=== PATIENT | male | born 1975 | race African-American/Black ===

== ENCOUNTER 2016-08-23 22:32 | Emergency (ER) | payer SELFPAY ==
[~2016-08-23] VITALS: Ht 182.9 cm; Wt 117.9 kg
--- NOTE | 2016-08-23 23:20 | NUR ---
PT PRESENTED TO THE ER WITH A C/O LT SIDED CP THAT RADIATES TO NECK WITH TINGLING DOWN THE LT ARM. PT IS AA7O X4. RESP EVEN AND UNLABORED. PT IS ON THE MONITOR AND CONTINUOUS PULSE OX. VSS.
[2016-08-23 23:46] LABS: BASOPHILS % (AUTO) 0.8 % (0.0-2.0); CALCIUM, SERUM 8.4 mg/dL (8.5-10.1); CARBON DIOXIDE 27 mmol/L (21-32); CHLORIDE 109 mmol/L (98-107); CREATININE 0.8 mg/dL (0.6-1.3); EOSINOPHILS % (AUTO) 1.8 % (0.0-6.0); GLUCOSE 115 mg/dL (74-106); HEMATOCRIT 39 % (39-51); HEMOGLOBIN 12.4 g/dL (13.5-17.5); LYMPHOCYTES % (AUTO) 30.6 % (20.0-44.0); MEAN CORPUSCULAR HEMOGLOBIN 28 PG (26.0-33.0); MEAN CORPUSCULAR HGB CONC 32 g/dl (31.0-36.0); MEAN CORPUSCULAR VOLUME 86 fL (80-96); MONOCYTES % (AUTO) 6.8 % (2.0-12.0); PLATELET COUNT (AUTO) 208 /CMM (150-450); POTASSIUM 3.6 mmol/L (3.5-5.1); RDW COEFFICIENT OF VARIATION 15.6 (11.5-15.0); SODIUM SERUM 143 mmol/L (136-145); UREA NITROGEN, BLOOD 12 mg/dL (7-18); WHITE BLOOD COUNT (AUTO) 8.1 K/uL (4.3-11.0)
[2016-08-23] MEDS ORDERED: NITROGLYCERIN 0.4 MG/TAB BOTTLE ONE (23:48)
--- NOTE | 2016-08-23 23:54 | NUR ---
PT REC'D MEDICATION ORDERED.
[2016-08-23 23:56] LABS: TROPONIN I < 0.017 ng/mL (0.00-0.056)
[2016-08-24] MEDS ORDERED: KETOROLAC TROMETHAMINE INJ 30 MG/ML VIAL ONE
[2016-08-24] MEDS ORDERED: NITROGLYCERIN 0.4 MG/TAB BOTTLE SL ONE
[2016-08-24 00:05] LABS: D-DIMER 0.23 mg/L(FEU (0.17-0.50); INR 0.91 (0.87-1.13); PROTHROMBIN TIME 9.7 SECS (9.5-12.7)
--- NOTE | 2016-08-24 00:08 | NUR ---
PT IS C/O HEADACHE. PT REC'D MEDICATION ORDERED.
--- NOTE | 2016-08-24 00:16 | NUR ---
US TECH IS AT THE BEDSIDE.
[2016-08-24] MEDS ORDERED: KETOROLAC TROMETHAMINE INJ 30 MG/ML VIAL IV ONE (00:30)
--- NOTE | 2016-08-24 00:48 | NUR ---
IV removed. Catheter intact and site benign. Pressure and 4x4 applied to site. No bleeding noted.Patient discharged to home in stable condition. Written and verbal after care instructions given. Patient verbalizes understanding of instruction AND RX. PT AMBULATED TO THE [facility] WITH A STEADY GAIT. PT IS WAITING FOR THE BUSES TO RUN TO [facility]. VSS
[2016-08-24 00:54] VITALS: BP 135/95
== END 2016-08-24 00:55 | disposition home or self-care (01) ==
LOC: ER 22:38
DX: R07.9 Chest pain, unspecified (principal); M79.1 Myalgia; Z87.891 Personal history of nicotine dependence; F17.200 Nicotine dependence, unspecified, uncomplicated; Z91.013 Allergy to seafood
CPT/HCPCS: 36415; 71010; 80048; 84484; 85025; 85378; 85730; 93005; 93971; 96374; 99285; A4606; J1885; Z7610

== ENCOUNTER 2018-11-04 10:46 | Emergency (ER) | payer MEDICAID ==
[~2018-11-04] VITALS: Ht 182.9 cm; Wt 115.2 kg
--- NOTE | 2018-11-04 11:00 | NUR ---
patient came in to the ER c/o "Chest pains x2days right mid abdomen/chest (epigastric) to back +nausea. Tingling/numb left arm". connected to the monitor and pulse ox. Kept comfortable, will continue to monitor accordingly.
[2018-11-04 11:26] LABS: BASOPHILS # (AUTO) 0.1 /CMM (0.0-0.2); BASOPHILS % (AUTO) 1.5 % (0.0-2.0); EOSINOPHILS % (AUTO) 3.4 % (0.0-6.0); HEMATOCRIT 47 % (39-51); HEMOGLOBIN 15.3 g/dL (13.5-17.5); LYMPHOCYTES # (AUTO) 1.6 /CMM (0.8-4.8); LYMPHOCYTES % (AUTO) 28.3 % (20.0-44.0); MEAN CORPUSCULAR HGB CONC 33 g/dl (31.0-36.0); MEAN CORPUSCULAR VOLUME 84 fL (80-96); MONOCYTES # (AUTO) 0.5 /CMM (0.1-1.30); MONOCYTES % (AUTO) 9.1 % (2.0-12.0); NEUTROPHILS # (AUTO) 3.3 /CMM (1.8-8.9); NEUTROPHILS % (AUTO) 57.7 % (43.0-81.0); PLATELET COUNT (AUTO) 203 /CMM (150-450); RED BLOOD CELL COUNT(AUTO) 5.56 MIL/uL (4.5-6.0); WHITE BLOOD COUNT (AUTO) 5.7 K/uL (4.3-11.0)
[2018-11-04] MEDS ORDERED: ONDANSETRON HCL/PF 4 MG/2 ML VIAL IVP ONE (11:30)
[2018-11-04] MEDS ORDERED: NITROGLYCERIN PACKET 1 GM PACKET TD ONE (11:30)
[2018-11-04] MEDS ORDERED: MORPHINE SULFATE INJ 2 MG/ML DISP.SYRIN IV ONE (11:30)
[2018-11-04] MEDS ORDERED: MORPHINE SULFATE INJ 4 MG/ML DISP.SYRIN ONE (11:34)
[2018-11-04] MEDS ORDERED: ONDANSETRON HCL/PF 4 MG/2 ML VIAL ONE (11:34)
[2018-11-04 11:39] LABS: CALCIUM, SERUM 9.3 mg/dL (8.5-10.1); CARBON DIOXIDE 29 mmol/L (21-32); CHLORIDE 98 mmol/L (98-107); CREATININE 1.1 mg/dL (0.6-1.3); POTASSIUM 4.2 mmol/L (3.5-5.1); SODIUM SERUM 135 mmol/L (136-145); UREA NITROGEN, BLOOD 13 mg/dL (7-18)
[2018-11-04 11:40] LABS: GLUCOSE 428 mg/dL (74-106)
[2018-11-04] MEDS ORDERED: IV NS 0.9% 1,000 ML BAG IV ONE (12:00)
[2018-11-04 12:05] VITALS: BP 129/84
--- NOTE | 2018-11-04 12:22 | NUR ---
[facility] PAGED
--- NOTE | 2018-11-04 12:41 | NUR ---
room [id number]
[2018-11-04] MEDS ORDERED: ASPIRIN 81 MG TAB.CHEW PO ONE (13:00)
[2018-11-04] MEDS ORDERED: ONDANSETRON HCL/PF 4 MG/2 ML VIAL IVP PRN (13:00)
[2018-11-04] MEDS ORDERED: MAGNESIUM HYDROXIDE 30 ML UDC PO PRN (13:00)
[2018-11-04] MEDS ORDERED: MORPHINE SULFATE INJ 2 MG/ML DISP.SYRIN IV PRN (13:00)
[2018-11-04] MEDS ORDERED: ACETAMINOPHEN 325 MG TABLET PO PRN (13:00)
[2018-11-04] MEDS ORDERED: MAG HYDROX/AL HYDROX/SIMETH 30 ML UDC PO PRN (13:00)
[2018-11-04] MEDS ORDERED: INSULIN REGULAR, HUMAN 100 UNIT/ML 3 ML VIAL SQ PRN (13:00)
[2018-11-04] MEDS ORDERED: ZOLPIDEM TARTRATE 5 MG TABLET PO PRN (13:00)
[2018-11-04] MEDS ORDERED: DEXTROSE 50%-WATER 50 ML DISP.SYRIN IV PRN (13:00)
[2018-11-04] MEDS ORDERED: NITROGLYCERIN 0.4 MG/TAB BOTTLE SL PRN (14:00)
--- NOTE | 2018-11-04 14:02 | NUR ---
Patient does not wish to proceed with medical care recommended by ( barbi). Patient given information related to possible complications, up to and including , which could occur as a result of leaving the hospital at this time. Patient verbalizes understanding of risks involved due to leaving against medical advice. Patient has signed AMA form.
[2018-11-04] MEDS ORDERED: CARVEDILOL 3.125 MG TABLET PO SCH (17:00)
[2018-11-04] MEDS ORDERED: BLOOD SUGAR DIAGNOSTIC 1 EACH STRIP IN SCH (17:30)
[2018-11-04] MEDS ORDERED: ATORVASTATIN 10 MG TABLET PO SCH (22:00)
[2018-11-05] MEDS ORDERED: ASPIRIN 81 MG TAB.CHEW PO SCH (09:00)
== END 2018-11-04 14:02 | disposition left against medical advice (07) ==
LOC: ER 10:48 → TELE 12:48 → UNDOADMIN 12:48
DX: R07.89 Other chest pain (principal); R73.9 Hyperglycemia, unspecified; F17.200 Nicotine dependence, unspecified, uncomplicated; Z91.013 Allergy to seafood
CPT/HCPCS: 36415; 71045; 80048; 83880; 84484; 85025; 85610; 85730; 87081; 93005; 96374; 96375; 99284; J1815; J2270; J2405; J7030

== ENCOUNTER 2018-11-04 20:23 | Emergency (ER) | payer MEDICAID ==
[~2018-11-04] VITALS: Ht 182.9 cm; Wt 115.2 kg
[2018-11-04 20:54] LABS: BASOPHILS % (AUTO) 0.9 % (0.0-2.0); EOSINOPHILS % (AUTO) 3.5 % (0.0-6.0); HEMATOCRIT 44 % (39-51); HEMOGLOBIN 14.3 g/dL (13.5-17.5); LYMPHOCYTES # (AUTO) 1.3 /CMM (0.8-4.8); LYMPHOCYTES % (AUTO) 24.5 % (20.0-44.0); MEAN CORPUSCULAR HGB CONC 32 g/dl (31.0-36.0); MEAN CORPUSCULAR VOLUME 85 fL (80-96); MONOCYTES # (AUTO) 0.4 /CMM (0.1-1.30); MONOCYTES % (AUTO) 7.3 % (2.0-12.0); NEUTROPHILS # (AUTO) 3.3 /CMM (1.8-8.9); NEUTROPHILS % (AUTO) 63.8 % (43.0-81.0); PLATELET COUNT (AUTO) 190 /CMM (150-450); RED BLOOD CELL COUNT(AUTO) 5.24 MIL/uL (4.5-6.0); WHITE BLOOD COUNT (AUTO) 5.1 K/uL (4.3-11.0)
[2018-11-04 21:00] VITALS: BP 113/73
--- NOTE | 2018-11-04 21:01 | NUR ---
BIBF. C/O "HAVING CHEST PAIN X1 DAY. WAS SEEN AND D/C FROM [facility] TODAY" SAME PAIN BEFORE. VSS AT THIS TIME. AOX4. -SOB
[2018-11-04 21:07] LABS: CALCIUM, SERUM 8.8 mg/dL (8.5-10.1); CARBON DIOXIDE 28 mmol/L (21-32); CHLORIDE 97 mmol/L (98-107); CREATININE 1.1 mg/dL (0.6-1.3); POTASSIUM 4.6 mmol/L (3.5-5.1); SODIUM SERUM 131 mmol/L (136-145); UREA NITROGEN, BLOOD 14 mg/dL (7-18)
[2018-11-04 21:11] LABS: GLUCOSE 524 mg/dL (74-106)
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
--- NOTE | 2018-11-04 21:32 | NUR ---
IV REMOVED. PATIENT LEFT WITH SECURITY
== END 2018-11-04 21:33 | disposition left against medical advice (07) ==
LOC: ER 20:29
DX: R07.89 Other chest pain (principal); R73.9 Hyperglycemia, unspecified; F17.200 Nicotine dependence, unspecified, uncomplicated; Z91.013 Allergy to seafood
CPT/HCPCS: 36415; 80048-TC; 84484-TC; 85025-TC

== ENCOUNTER 2020-01-01 11:40 | Inpatient (IN) | payer MEDICAID ==
[~2020-01-01] VITALS: Ht 182.9 cm; Wt 108.9 kg
--- NOTE | 2020-01-01 11:48 | NUR ---
PT came to ER with c/o left sided chest pain of 9/10 radiating to jaw and neck. no diaphoresis. no SOB. pt calm and no facial grimacing or moaning. pt also noted with non productive cough. awaiting for MD gil
[2020-01-01] MEDS ORDERED: NITROGLYCERIN PACKET 1 GM PACKET ONE (11:58)
[2020-01-01] MEDS ORDERED: ASPIRIN 325 MG TABLET ONE (11:59)
[2020-01-01] MEDS ORDERED: NITROGLYCERIN PACKET 1 GM PACKET TD ONE (12:00)
[2020-01-01] MEDS ORDERED: ASPIRIN 325 MG TABLET PO ONE (12:00)
--- NOTE | 2020-01-01 12:03 | NUR ---
IV LINE ESTABLISHED, BLOOD DRAWN AND SENT TO LAB. COVID SWAB SENT.
[2020-01-01 12:18] LABS: CALCIUM, SERUM 9.4 mg/dL (8.5-10.1); CARBON DIOXIDE 28 mmol/L (21-32); CHLORIDE 94 mmol/L (98-107); POTASSIUM 4.6 mmol/L (3.5-5.1); SODIUM SERUM 130 mmol/L (136-145); UREA NITROGEN, BLOOD 15 mg/dL (7-18)
[2020-01-01 12:23] LABS: BASOPHILS # (AUTO) 0.1 /CMM (0.0-0.2); HEMATOCRIT 51 % (39-51); HEMOGLOBIN 16.4 g/dL (13.5-17.5); LYMPHOCYTES # (AUTO) 1.6 /CMM (0.8-4.8); LYMPHOCYTES % (AUTO) 29.5 % (20.0-44.0); MEAN CORPUSCULAR HGB CONC 32 g/dl (31.0-36.0); MEAN CORPUSCULAR VOLUME 83 fL (80-96); MONOCYTES # (AUTO) 0.4 /CMM (0.1-1.30); MONOCYTES % (AUTO) 6.5 % (2.0-12.0); NEUTROPHILS # (AUTO) 3.3 /CMM (1.8-8.9); PLATELET COUNT (AUTO) 203 /CMM (150-450); RED BLOOD CELL COUNT(AUTO) 6.07 MIL/uL (4.5-6.0); WHITE BLOOD COUNT (AUTO) 5.5 K/uL (4.3-11.0)
[2020-01-01 12:26] LABS: GLUCOSE 473 mg/dL (74-106)
[2020-01-01] MEDS ORDERED: IV NS 0.9% 1,000 ML BAG IV ONE (12:30)
[2020-01-01] MEDS ORDERED: METOPROLOL TARTRATE 25 MG TABLET PO ONE (12:30)
--- NOTE | 2020-01-01 12:36 | NUR ---
v/s checked. sbp <110. md aware with order to hold metorpolol. noted. pt still c/o chest pain nad headache. MD aware, awaiting for new orders
[2020-01-01] MEDS ORDERED: MORPHINE SULFATE INJ 4 MG/ML DISP.SYRIN ONE (12:38)
[2020-01-01] MEDS ORDERED: ONDANSETRON HCL/PF 4 MG/2 ML VIAL ONE (12:38)
[2020-01-01] MEDS ORDERED: ONDANSETRON HCL/PF 4 MG/2 ML VIAL IVP ONE (13:00)
[2020-01-01] MEDS ORDERED: MORPHINE SULFATE INJ 2 MG/ML DISP.SYRIN IV ONE (13:00)
--- NOTE | 2020-01-01 13:35 | NUR ---
CALLED CARDIOLOGY HAT SPRAYER. DR. ORTEGA HAT SPRAYER AND ANSWERED. SPEAKING WITH DR. PATTEN.
--- NOTE | 2020-01-01 13:41 | NUR ---
PAGED [facility].
[2020-01-01] MEDS ORDERED: METOPROLOL TARTRATE INJ 5 MG/5 ML AMPUL ONE (14:16)
[2020-01-01] MEDS ORDERED: IOHEXOL-350 100 ML VIAL IV ONE (14:16)
[2020-01-01] MEDS ORDERED: IV NS 0.9% 250 ML IV ONE (14:17)
[2020-01-01] MEDS ORDERED: CT SWABBABLE VALVE TRANS SET 1 EA INFUS.SET MC ONE (14:17)
--- NOTE | 2020-01-01 14:21 | NUR ---
CALLED NURSING SUP FOR TELE BED.
--- NOTE | 2020-01-01 15:04 | NUR ---
NURSING SUP GAVE TELE BED 104.
--- NOTE | 2020-01-01 15:18 | NUR ---
REPORT GIVEN TO NHI SHARMA FOR THOMAS.
[2020-01-01] MEDS ORDERED: HYDROCODONE/APAP 5/325MG TABLET PO PRN (15:30)
[2020-01-01] MEDS ORDERED: Z GUARD REMEDY 2 OZ OINT TP PRN (15:30)
[2020-01-01] MEDS ORDERED: MAGNESIUM HYDROXIDE 30 ML UDC PO PRN (15:30)
[2020-01-01] MEDS ORDERED: ZOLPIDEM TARTRATE 5 MG TABLET PO PRN (15:30)
[2020-01-01] MEDS ORDERED: ACETAMINOPHEN 325 MG TABLET PO PRN (15:30)
[2020-01-01] MEDS ORDERED: MAG HYDROX/AL HYDROX/SIMETH 30 ML UDC PO PRN (15:30)
[2020-01-01] MEDS ORDERED: ONDANSETRON HCL/PF 4 MG/2 ML VIAL IVP PRN (15:30)
[2020-01-01] MEDS ORDERED: IBUPROFEN 600 MG TABLET PO PRN (16:00)
[2020-01-01 16:25] VITALS: BP 101/56
--- NOTE | 2020-01-01 16:25 | NUR ---
RN NOTES RECEIVED PT FROM ER VIA WHEELCHAIR. ACCOMPANIED BY . IV SITES AT R HAND #20 AND L AC#20. BOTH INTACT, PATENT AND FLUSHED. PT IS AMBULATORY. REFUSED TO PUT TELE BOX. REFUSED TO CHANGE INTO HOSPITAL GOWN. VS WNL. PT IS STABLE. WHEN CHARGE NURSE TOLD THAT SHE CANNOT STAY, PT GOT AGITATED AND WILL LEAVE IF THE LEAVES. NURSING ADMISSIONS EVALUATOR IS AWARE. MD INFORMED. WILL CONTINUE TO MONITOR
--- NOTE | 2020-01-01 16:28 | NUR ---
RESIDENTIAL BUILDING INSPECTOR NOTES PATIENT ARRIVED AT THE UNIT WITH . PATIENT REFUSE TO SEND HOME AND STATED THAT IF SHE GOES HOME, HE WILL GO HOME TOO. NOTIFIED DR. FIERRO ABOUT THIS AND SAID TO NOTIFY DR. ORTEGA FOR CARDIO CLEARANCE IF OKAY FOR DC POST CTA. RESULTS RELAYED TO HER. Addendum: 01/01/20 at 1705 by FRACISCO ANDRADE RN ADDENDUM: [facility] NURSING BDR AWARE.
--- NOTE | 2020-01-01 16:39 | NUR ---
PURCHASING EXPEDITOR NOTES CTA RESULT RELAYED TO DR. ORTEGA, PER HIM PATIENT OKAY TO DC. RELAYED TO DR. FIERRO. WILL DISCHARGE PATIENT IN A FEW.
--- NOTE | 2020-01-01 16:40 | NUR ---
RN NOTES DR. FIERRO WILL DC THE PT
[2020-01-01] MEDS ORDERED: INSU100V7 SQ (17:45)
[2020-01-01] MEDS ORDERED: [UNRECOGNIZED DRUG - OTHER] MC (17:45)
[2020-01-01] MEDS ORDERED: SYRI1DIS86 MC (17:45)
[2020-01-01] MEDS ORDERED: LANC-576 MC (17:45)
[2020-01-01] MEDS ORDERED: [UNRECOGNIZED DRUG - CODE] MC (17:45)
--- NOTE | 2020-01-01 18:30 | NUR ---
SCENERY BUILDER NOTES DISCHARGE ORDERS RECEIVED FROM DR. FIERRO JUST A WHILE AGO. PATIENT INSTRUCTED ABOUT DISCHARGE INSTRUCTIONS, GOT AGITATED AND DOES NOT WANT TO WAIT A SECOND AND REFUSED TO SIGN DISCHARGE PAPERS. HOWEVER, HE WAS GIVEN INSTRUCTIONS TO GET INSULIN MEDICATION FROM [facility] AND HOW TO USE IT BY PRIMARY NURSE FELIPA. SECURITY WAS NOTIFIED WHEN PATIENT WAS ABOUT TO WALK OUT. IV ACCESS REMOVED BY SANDRA HANKINS. PATIENT AMBULATORY AND ACCOMPANIED BY SECURITY TO [facility]. WILL GO HOME VIA PRIVATE CAR. Addendum: 01/01/20 at 1838 by FRACISCO ANDRADE RN ADDENDUM: PER SANDRA HANKINS, PATIENT ALLOWED HIM TO REMOVE ALL IV ACCESS BUT THREATENED TO SWING AT HIM WHEN HE ASKED FOR THE ARM BAND TO BE REMOVED AND IMMEDIATELY LEFT.
--- NOTE | 2020-01-01 18:35 | NUR ---
RN NOTES DR. FIERRO ORDERS DC. PT MADE AWARE. DISCHARGE INSTRUCTIONS GIVEN. INSTRUCTED ON HOW TO USE INSULIN AND WHERE TO GET THE PRESCRIPTION, [facility]. VERBALIZED UNDERSTANDING. SUDDENLY PT WANTS TO LEAVE IMMEDIATELY. PT GOT AGITATED AND DOES NOT WANT TO WAIT. REFUSED TO SIGN DISCHARGE PAPERS. SECURITY NOTIFIED. IV ACCESS REMOVED BY SANDRA HANKINS. BUT ID BAND WAS NOT REMOVED. WHEN SANDRA HANKINS TRIED TO REMOVE IT PT THREATENED TO HURT RN IF HE TOUCH HIM. PT WENT OUT ACCOMPANIED BY AND SECURITY TO LOBBY. WILL GO HOME VIA PRIVATE CAR.
--- NOTE | 2020-01-01 20:07 | NUR ---
RN NOTES INCIDENT REPORT FILED. UNIQUE ID: [id number]
[2020-01-01] MEDS ORDERED: INSULIN GLARGINE, 100 UNIT/ML CARTRIDGE SQ SCH (22:00)
== END 2020-01-01 18:30 | disposition home or self-care (01) | DRG 198 ==
LOC: ER 11:44 → MEDSG1 15:20
PROVIDERS: ADMIT Student in an Organized Health Care Education/Training Program; ATTEND Student in an Organized Health Care Education/Training Program
PROC: B22 Imaging, Heart, Computerized Tomography (CT Scan) (ICD-10-PCS; principal; 2020-01-01)
DX: I25.10 Atherosclerotic heart disease of native coronary artery without angina pectoris (principal); E78.5 Hyperlipidemia, unspecified; I10 Essential (primary) hypertension; E11.9 Type 2 diabetes mellitus without complications; Z88.6 Allergy status to analgesic agent; Z88.8 Allergy status to other drugs, medicaments and biological substances; F17.200 Nicotine dependence, unspecified, uncomplicated; Z88.5 Allergy status to narcotic agent; Z91.013 Allergy to seafood
CPT/HCPCS: 36415; 71045-TC; 75574; 80048-TC; 82962-TC; 84484-TC; 85025-TC; 87081-TC; C9803; G0378; J1815; J2270; J2405; J3490; J7030; J7050; Q9967

== ENCOUNTER 2020-10-10 09:56 | Emergency (ER) | payer OTHER, MEDICAID ==
[~2020-10-10] VITALS: Ht 182.9 cm; Wt 94.3 kg
[~2020-10-10 09:56] MED LIST: INSU100V7 SQ; LANC-576 MC; SYRI1DIS86 MC; [UNRECOGNIZED DRUG - CODE] MC; [UNRECOGNIZED DRUG - OTHER] MC
[2020-10-10 10:07] VITALS: BP 115/67
--- NOTE | 2020-10-10 10:11 | NUR ---
The patient is biblapd, for booking, needs covid testing, c/o SOB, 100% on room air. In room air and denies SOB. Respiration regular and unlabored. No other complains of covid related symptoms except SOB. Will continue to monitor the patient.
--- NOTE | 2020-10-10 10:22 | NUR ---
covid swab collected and sent to lab.
--- NOTE | 2020-10-10 11:34 | NUR ---
Patient discharged in custody in stable condition. Written and verbal after care instructions given. Patient verbalizes understanding of instruction.
== END 2020-10-10 11:35 ==
LOC: ER 09:59
DX: Z20.822 Contact with and (suspected) exposure to COVID-19 (principal); E11.9 Type 2 diabetes mellitus without complications; Z87.892 Personal history of anaphylaxis; Z88.5 Allergy status to narcotic agent; Z91.013 Allergy to seafood; Z79.4 Long term (current) use of insulin; F17.200 Nicotine dependence, unspecified, uncomplicated
CPT/HCPCS: 87426; 99283; C9803

== ENCOUNTER 2021-06-15 15:17 | Emergency (ER) | payer MEDICAID ==
[~2021-06-15] VITALS: Ht 182.9 cm; Wt 99.8 kg
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
--- NOTE | 2021-06-15 16:32 | NUR ---
BACK FROM CT
[2021-06-15] MEDS ORDERED: MORPHINE SULFATE INJ 4 MG/ML DISP.SYRIN ONE (16:59)
[2021-06-15] MEDS ORDERED: ONDANSETRON HCL/PF 4 MG/2 ML VIAL ONE (16:59)
[2021-06-15] MEDS ORDERED: MORPHINE SULFATE INJ 2 MG/ML DISP.SYRIN IM ONE (17:00)
[2021-06-15] MEDS ORDERED: ONDANSETRON HCL/PF - ER 4 MG/2 ML VIAL IM ONE (17:00)
--- NOTE | 2021-06-15 17:06 | NUR ---
x-ray tech at the bedside
[2021-06-15] MEDS ORDERED: IBUP-1957 PO (18:22)
--- NOTE | 2021-06-15 18:48 | NUR ---
Patient discharged to home in stable condition. Written and verbal after care instructions given. Patient verbalizes understanding of instruction.
[2021-06-15 18:49] VITALS: BP 126/84
== END 2021-06-15 18:50 | disposition home or self-care (01) ==
LOC: ER 15:27
DX: S49.81XA Other specified injuries of right shoulder and upper arm, initial encounter (principal); F17.200 Nicotine dependence, unspecified, uncomplicated; Z91.013 Allergy to seafood; Z88.8 Allergy status to other drugs, medicaments and biological substances; Z79.899 Other long term (current) drug therapy; W01.0XXA Fall on same level from slipping, tripping and stumbling without subsequent striking against object, initial encounter; Y93.89 Activity, other specified; Y92.89 Other specified places as the place of occurrence of the external cause; Y99.8 Other external cause status
CPT/HCPCS: 70450; 71100; 72125; 73030; 73110; 96372 ×2; 99284; J2270; J2405

== ENCOUNTER 2022-10-21 13:54 | Emergency (ER) | payer MEDICAID, OTHER ==
[~2022-10-21] VITALS: Ht 182.9 cm; Wt 99.8 kg
[~2022-10-21 13:54] MED LIST changes: +IBUP-1957 PO
[2022-10-21] MEDS ORDERED: IBUPROFEN 600 MG TABLET PO ONE (14:30)
[2022-10-21] MEDS ORDERED: IBUPROFEN 600 MG TABLET ONE (14:33)
[2022-10-21] MEDS ORDERED: IBUP-1953 PO (16:34)
[2022-10-21 16:45] VITALS: BP 141/81; TEMP 97.9; O2SAT 97
== END 2022-10-21 16:45 | disposition home or self-care (01) ==
LOC: ER 13:54
DX: S13.4XXA Sprain of ligaments of cervical spine, initial encounter (principal); S40.011A Contusion of right shoulder, initial encounter; S80.11XA Contusion of right lower leg, initial encounter; E11.9 Type 2 diabetes mellitus without complications; F17.200 Nicotine dependence, unspecified, uncomplicated; Z88.8 Allergy status to other drugs, medicaments and biological substances; Z91.013 Allergy to seafood; V59.9XXA Occupant (driver) (passenger) of pick-up truck or van injured in unspecified traffic accident, initial encounter; Y93.89 Activity, other specified; Y92.89 Other specified places as the place of occurrence of the external cause; Y99.8 Other external cause status
CPT/HCPCS: 71045-TC; 72125-TC; 72170-TC; 73030-TC; 73590-TC

== ENCOUNTER 2023-08-11 05:01 | Emergency (ER) | payer OTHER ==
[~2023-08-11] VITALS: Ht 177.8 cm; Wt 79.4 kg
[~2023-08-11 05:01] MED LIST changes: +IBUP-1953 PO
[2023-08-11 05:24] VITALS: BP 115/93; TEMP 97.8; O2SAT 98
== END 2023-08-11 06:17 | disposition left against medical advice (07) ==
LOC: ER 05:02
DX: R05.9 Cough, unspecified (principal); R06.02 Shortness of breath; Z53.21 Procedure and treatment not carried out due to patient leaving prior to being seen by health care provider

== ENCOUNTER 2023-10-27 12:43 | Emergency (ER) | payer OTHER ==
[~2023-10-27] VITALS: Ht 182.9 cm; Wt 99.8 kg
[2023-10-27 13:00] VITALS: TEMP 98.4
[2023-10-27] MEDS ORDERED: CEPHALEXIN MONOHYDRATE 500 MG CAPSULE PO ONE (13:31)
[2023-10-27] MEDS ORDERED: IBUPROFEN 400 MG TABLET ONE (13:32)
[2023-10-27] MEDS: IBUPROFEN 400 MG TABLET PO ONE (13:36)
[2023-10-27] MEDS: CEPHALEXIN MONOHYDRATE 500 MG CAPSULE PO ONE (13:36)
[2023-10-27] MEDS ORDERED: CEPH-570 PO (14:50)
[2023-10-27] MEDS ORDERED: SULF1TAB48 PO (14:50)
[2023-10-27] MEDS: PIPERACILLIN /TAZOBACTAM 3.375 G in IV D5W 50 ML IV ONE (15:12)
[2023-10-27 15:24] LABS: BASOPHILS # (AUTO) 0.1 K/uL (0.0-0.2); EOSINOPHILS # (AUTO) 0.2 K/uL (0.0-0.7); EOSINOPHILS % (AUTO) 3.8 % (0.0-6.0); HEMATOCRIT 40 % (39-51); HEMOGLOBIN 12.4 g/dL (13.5-17.5); LYMPHOCYTES # (AUTO) 1.5 K/uL (0.8-4.8); MEAN CORPUSCULAR HEMOGLOBIN 26 PG (26.0-33.0); MEAN CORPUSCULAR HGB CONC 31 g/dl (31.0-36.0); MEAN CORPUSCULAR VOLUME 83 fL (80-96); MONOCYTES # (AUTO) 0.3 K/uL (0.1-1.30); MONOCYTES % (AUTO) 5.8 % (2.0-12.0); NEUTROPHILS # (AUTO) 3.9 K/uL (1.8-8.9); NEUTROPHILS % (AUTO) 64.4 % (43.0-81.0); PLATELET COUNT (AUTO) 216 K/uL (150-450); RED BLOOD CELL COUNT(AUTO) 4.75 MIL/uL (4.5-6.0); RED CELL DISTRIBUTION WIDTH 15.1 % (11.5-15.0)
[2023-10-27 15:49] LABS: CALCIUM, SERUM 9.1 mg/dL (8.5-10.1); CREATININE 0.9 mg/dL (0.6-1.3); POTASSIUM 3.8 mmol/L (3.5-5.1)
[2023-10-27 15:51] LABS: C-REACTIVE PROTEIN 4.25 mg/dL (0.0-0.30)
[2023-10-27 15:53] LABS: BILIRUBIN,TOTAL 0.2 mg/dL (0.2-1.0); TOTAL PROTEIN, SERUM 7.4 g/dL (6.4-8.2)
[2023-10-27] MEDS: VANCOMYCIN 1 GM in IV D5W 250 ML IV ONE (16:00)
[2023-10-27 16:02] LABS: ERYTHROCYTE SEDIMENTATION RATE 77 MM/HR (0-15)
[2023-10-27 16:13] VITALS: BP 135/92; O2SAT 99
== END 2023-10-27 17:02 | disposition left against medical advice (07) ==
LOC: ER 12:45
DX: L08.89 Other specified local infections of the skin and subcutaneous tissue (principal); E11.9 Type 2 diabetes mellitus without complications; M79.674 Pain in right toe(s); F17.200 Nicotine dependence, unspecified, uncomplicated; Z86.79 Personal history of other diseases of the circulatory system; Z88.5 Allergy status to narcotic agent; Z88.6 Allergy status to analgesic agent; Z91.013 Allergy to seafood; Z88.8 Allergy status to other drugs, medicaments and biological substances
CPT/HCPCS: 99284; 96365; 96367; 73660; 85025; 85652; 36415; 80053; 86140; J3370; J2543; J7060